=== PATIENT | male | born 1990 | race Caucasian/White ===

== ENCOUNTER 2017-12-30 16:40 | Emergency (ER) | payer MEDICAID ==
[2017-12-30] MEDS ORDERED: NS 1,000 ML IV ONE ×2 (17:05→17:06)
[2017-12-30] MEDS ORDERED: AMPICILLIN/SULBACTAM 3 GM in NS 100 ML IV ONE (17:05)
[2017-12-30] MEDS ORDERED: DEXAMETHASONE 10 MG/ML VIAL IVP ONE (17:05)
--- NOTE | 2017-12-30 17:08 | EDPHY ---
H & P Time Seen by Provider: 12/30/17 16:56 HPI/ROS: CHIEF COMPLAINT: Severe sore throat HISTORY OF PRESENT ILLNESS: 4 days of sore throat feels different than strep was seen at urgent care yesterday and has been on amoxicillin since yesterday. Today's worse and has pain and difficulty with swallowing food and pain with drinking water. He can swallow his antibiotics but with difficulty. Symptoms associated with bilateral ear fullness and a mild headache, no neck pain. No difficulty with speech and no dental symptoms. Not better worse with breathing but worse with swallowing. REVIEW OF SYSTEMS: Eye: no change in vision ENT: HPI Cardiac: no chest pain or syncope Pulmonary: no cough or SOB Abdomen: no vomiting, diarrhea, abdominal pain Musculoskeletal: no back pain Skin: no rash Neuro: no headache Constitutional: Subjective fever and chills : no urinary symptoms today, yesterday he had a little bit of discomfort but that has not happened since. A comprehensive 10 point review of systems is otherwise negative aside from elements mentioned in the history of present illness. PAST MEDICAL HISTORY: History of meningitis, no history of kidney disease. Social history: No drug use, nonsmoker General Appearance: Alert and conversant, cooperative. Eyes: No scleral icterus. ENT, Mouth: Normal tympanic membranes. No trismus. He has pharyngeal erythema with right tonsillar exudate and some lateral swelling but no fluctuance to palpation and uvula is midline. No stridor or drooling and voice is not hoarse. No external facial swelling. Respiratory: Normal respiratory effort, breath sounds equal, lungs are clear to auscultation. Cardiovascular: Regular rate and rhythm. Gastrointestinal: Abdomen is soft and non tender. Neurological: Alert, face symmetric, normal motor and sensory in extremities. Skin: Warm and dry, no rashes. Musculoskeletal: Normal range of the motion of the neck, supple. Psychiatric: Not agitated. Emergency Department course/MDM: Patient presents with severe right-sided tonsillitis and mild dehydration but does not clinically have evidence of retropharyngeal abscess, epiglottitis, deep space infection, Lemierre syndrome, or peritonsillar abscess. IV normal saline 2 L, dexamethasone 10 mg IV, Unasyn 3 g. Plan to treat symptomatically with ENT follow-up tomorrow morning. 1814: Hydrocodone 1 and Toradol 30 mg IV. 1905: Re-evaluated, comfortable, 2 L IV fluids. Urinated with no symptoms. Hydrocodone prepack and ENT follow-up in 12 hr. Swallows medication and fluids, no airway compromise, no abscess on exam at this visit. Smoking Status: Never smoked Constitutional: Initial Vital Signs Temperature (C) 37.1 C 12/30/17 16:46 Heart Rate 89 12/30/17 16:46 Respiratory Rate 18 12/30/17 16:46 Blood Pressure 126/82 H 12/30/17 16:46 O2 Sat (%) 95 12/30/17 16:46 O2 Delivery Mode Room Air Allergies/Adverse Reactions: No Known Allergies Allergy (Unverified 12/30/17 16:50) Home Medications: Medication Instructions Recorded Amoxicillin 12/30/17 Medical Decision Making - Data Points Medications Given: Discontinued Medications Hydrocodone Bitart/Acetaminophen ([place] 5/325) 1 tab PO EDNOW ONE Stop: 12/30/17 18:16 Last Admin: 12/30/17 18:32 Dose: 1 tab Hydrocodone Bitart/Acetaminophen ([place] 5/325mg Prepack#6) 1 btl TAKEHOME EDNOW ONE Stop: 12/30/17 19:07 Last Admin: 12/30/17 19:15 Dose: 1 btl Dexamethasone (Decadron Injection) 10 mg IVP EDNOW ONE Stop: 12/30/17 17:06 Last Admin: 12/30/17 17:14 Dose: 10 mg Sodium Chloride (Ns) 1,000 mls @ 0 mls/hr IV ONCE ONE; Wide Open PRN Reason: Protocol Stop: 12/30/17 17:06 Last Admin: 12/30/17 17:14 Dose: 1,000 mls Sodium Chloride (Ns) 1,000 mls @ 0 mls/hr IV EDNOW ONE; Wide Open PRN Reason: Protocol Stop: 12/30/17 17:07 Last Admin: 12/30/17 17:19 Dose: 1,000 mls Ampicillin Sodium/Sulbactam (Sodium 3 gm/ Sodium Chloride) 100 mls @ 200 mls/ hr IV EDNOW ONE PRN Reason: Protocol Stop: 12/30/17 17:34 Last Admin: 12/30/17 17:59 Dose: 100 mls Ibuprofen (Motrin) 600 mg PO EDNOW ONE Stop: 12/30/17 17:21 Last Admin: 12/30/17 17:43 Dose: 600 mg Ketorolac Tromethamine (Toradol) 30 mg IVP EDNOW ONE Stop: 12/30/17 18:16 Last Admin: 12/30/17 18:32 Dose: 30 mg Departure - Departure Disposition: Home, Routine, Self-Care Clinical Impression: Tonsillitis Condition: Good Instructions: Hydrocodone/Acetaminophen (By mouth), Tonsillitis (ED) Additional Instructions: See ENT tomorrow morning; call at 830 AM and tell them you are an ED referral. You received Unasyn 3g and Dexamethasone 10mg in the IV in the ED. Referrals: Nannette Berkowitz MD [Medical Doctor] - As per Instructions
[2017-12-30] MEDS ORDERED: IBUPROFEN 200 MG TAB PO ONE (17:20)
[2017-12-30] MEDS ORDERED: KETOROLAC 30 MG/1 ML SDV IVP ONE (18:15)
[2017-12-30] MEDS ORDERED: HYDROCODONE/APAP 5/325 TAB PO ONE (18:15)
[2017-12-30] MEDS ORDERED: HYDROCOD/APAP 5/325 PREPACK#6 BTL TAKEHOME ONE (19:06)
[2017-12-30 19:08] VITALS: BP 128/75
== END 2017-12-30 19:20 | disposition home or self-care (01) ==
DX: J03.90 Acute tonsillitis, unspecified (principal); E86.9 Volume depletion, unspecified
CPT/HCPCS: 96374; J0295; J1100; J1885

== ENCOUNTER 2018-01-01 14:31 | Emergency (ER) | payer MEDICAID ==
[2018-01-01] MEDS ORDERED: DEXAMETHASONE 10 MG/ML VIAL IVP ONE (15:14)
[2018-01-01] MEDS ORDERED: KETOROLAC 30 MG/1 ML SDV IVP ONE (15:14)
[2018-01-01] MEDS ORDERED: NS 1,000 ML IV ONE (15:14)
[2018-01-01] MEDS ORDERED: OXYCODONE/APAP 5/325 TAB PO ONE (15:15)
--- NOTE | 2018-01-01 15:37 | EDPHY ---
H & P Stated Complaint: DX TONSILLITIS RX ABX STILL HURTS Source: Patient, Old records Exam Limitations: No limitations - Personal History Current Tetanus Diphtheria and Acellular Pertussis (TDAP): Yes - Medical/Surgical History Hx Asthma: No Hx Chronic Respiratory Disease: No Hx Diabetes: No Hx Cardiac Disease: No Hx Renal Disease: No Hx Cirrhosis: No Hx Alcoholism: No Hx HIV/AIDS: No Hx Splenectomy or Spleen Trauma: No Other PMH: Meningitis - Social History Smoking Status: Never smoked Time Seen by Provider: 01/01/18 15:14 HPI/ROS: HPI: This is a 27-year-old male who presents with Chief Complaint: Sore throat Location: Throat Quality: Sore Duration: Since 12/29/2017 Signs and Symptoms: no fever, no nausea, no vomiting, no diarrhea, no urinary symptoms, no chest pain, no shortness of breath, no wheezing, no cough, no sore throat, no neck stiffness, no joint pain, +swollen glands, no ear pain, no rash Timing: Acute Severity: 11/19 Context: Patient presents with complaints of continued sore throat since 2017, with swollen glands worse on the right. Patient reports that he has not been able to eat or drink anything for 2 days. He is able to take his amoxicillin which is prescribed to him on 12/29/2017 by the urgent care. He was seen in this emergency room on 12/30/2017 with continued throat pain. He was given IV dexamethasone 10 mg and 3 g of IV Unasyn with ENT follow-up on . Patient did not follow up with ENT. He denies any fever, neck stiffness, nausea, vomiting. Modifying Factors: Amoxicillin Comment: ROS: A comprehensive 10 system review of systems is otherwise negative aside from elements mentioned in the history of present illness. MEDICAL/SURGICAL/SOCIAL HISTORY: Medical history: Meningitis. Does not take any regular medications. Surgical history: Denies Social history: Family history noncontributory. CONSTITUTIONAL: Well-developed, well-nourished adult white male, awake and alert, no obvious distress HEENT: Atraumatic and normocephalic, PERRL, EOMI. Nares patent; no rhinorrhea; no nasal mucosal edema. Tympanic membranes clear. Oropharynx clear, right tonsil 2+ with moderate erythema and no exudate, left tonsil 2+ with mild erythema and no exudate. Uvula midline. and moist pink mucosa. Airway patent. No lymphadenopathy. No meningismus. Cardiovascular: Normal S1/S2, regular rate, regular rhythm, without murmur rub or gallop. PULMONARY/CHEST: Symmetrical and nontender. Clear to auscultation bilaterally. Good air movement. No accessory muscle usage. ABDOMEN: Soft, nondistended, nontender, no rebound, no guarding, no peritoneal signs, no masses or organomegaly. No CVAT. EXTREMITIES: 2/2 pulses, strength 5/5, no deformities, no clubbing, no cyanosis or edema. NEUROLOGICAL: no focal neuro deficits. GCS 15. Able to talk and swallow without difficulty. SKIN: Warm and dry, no erythema. no rash. Good capillary refill. (Lilian Sewell) Constitutional: Initial Vital Signs Temperature (C) 36.7 C 01/01/18 14:51 Heart Rate 68 01/01/18 14:51 Respiratory Rate 16 01/01/18 14:51 Blood Pressure 113/76 01/01/18 14:51 O2 Sat (%) 98 01/01/18 14:51 O2 Delivery Mode Room Air Allergies/Adverse Reactions: No Known Allergies Allergy (Unverified 12/30/17 16:50) Home Medications: Medication Instructions Recorded Amoxicillin 12/30/17 Clindamycin HCl [Clindamycin] 300 mg PO TID #30 cap 01/01/18 [place] 5/325 (*) 01/01/18 methylPREDNISolone [Medrol Dose 1 each PO AD #0 ea 01/01/18 Yang] oxyCODONE/APAP 5/325 [Percocet 1 - 2 tab PO Q4H PRN #12 tab 01/01/18 5/325 (*)] Medical Decision Making ED Course/Re-evaluation: Vital signs reviewed and stable upon arrival. No systemic signs. No signs of postpharyngeal abscess/Grant's angina/airway compromise Given 1 L normal saline, IV Toradol 30 mg, IV Decadron 10 mg and p.o. Percocet x1 Negative strep CT soft tissue neck without contrast ordered to evaluate for abscess. CBC and BMP drawn. Called By Radiology who advised that Right peritonsillar abscess 1.6 cm x 1.9 cm versus phlegmon resulting in mild mass effect upon the hypopharynx. 1645: Labs reviewed. WBC 14 K, creatinine 0.7 1700: ED decision to consult ENT, Dr. Lake, who review CT neck scan. Advised that patient needs to stop amoxicillin, start taking clindamycin with 1st dose in the emergency room, Medrol Dosepak, pain medication and he will see him in the office on Wednesday or Wednesday. 1712: Reassessed patient. Patient able to take antibiotic pill and drink fluids without difficulty. He feels comfortable being discharged home with ENT follow- up. This patient was seen under the supervision of my secondary supervising physician. I evaluated care for this patient independently. Discussed this patient with Dr. Daniel. (Lilian Sewell) The patient was evaluated and managed by the physician delinquent tax collection assistant. I have reviewed this chart and I agree with the findings and plan of care as documented , as indicated by my signature. I am the secondary supervising physician. ( Makayla Daniel) Differential Diagnosis: Differential diagnosis includes but is not limited to infectious mononucleosis, strep pharyngitis, acute tonsillitis, Grant's angina. (Lilian Sewell) - Data Points Laboratory Results: Laboratory Results 01/01/18 15:25 01/01/18 15:20 01/01/18 Unknown Group A Strep DNA NEGATIVE (NEGATIVE) Medications Given: Discontinued Medications Clindamycin (Clindamycin) 300 mg PO EDNOW ONE PRN Reason: Protocol Stop: 01/01/18 17:14 Last Admin: 01/01/18 17:17 Dose: 300 mg Dexamethasone (Decadron Injection) 10 mg IVP EDNOW ONE Stop: 01/01/18 15:15 Last Admin: 01/01/18 15:24 Dose: 10 mg Sodium Chloride (Ns) 1,000 mls @ 0 mls/hr IV EDNOW ONE; Wide Open PRN Reason: Protocol Stop: 01/01/18 15:15 Last Admin: 01/01/18 15:24 Dose: 1,000 mls Ketorolac Tromethamine (Toradol) 30 mg IVP EDNOW ONE Stop: 01/01/18 15:15 Last Admin: 01/01/18 15:24 Dose: 30 mg Oxycodone/Acetaminophen (Percocet 5/325) 1 tab PO EDNOW ONE Stop: 01/01/18 15:16 Last Admin: 01/01/18 15:24 Dose: 1 tab Departure - Departure Disposition: Home, Routine, Self-Care Clinical Impression: Acute tonsillitis Condition: Good Instructions: Tonsillitis (ED) Additional Instructions: Consume a minimum of 8-10 glasses of water or electrolyte fluid replacement drinks that include Gatorade, Powerade, Pedialyte. Eat a soft/bland diet for the next 48 hours and then slowly advance as tolerated. Stop taking amoxicillin and start taking clindamycin. Take Medrol Dosepak as directed. Take Percocet 1-2 tabs every 4-6 hours as needed for severe/breakthrough pain. Call the ENT office on Wednesday for a follow-up appointment either Wednesday or Wednesday. Follow-Up: Please follow-up as noted above. Follow-up sooner if your condition worsens or if you develop any new problems. Call as soon as possible for an appointment. Be clear when you call for an appointment that this is an Emergency Department follow-up. Contact the Emergency Department if you have trouble arranging follow-up care. Our referrals are not based on your insurance network. When time allows, contact your insurance carrier to verify the referral physician is in your plan. If not, get a referral for an in-network programmer. Referrals: Neymar Lake MD [Medical Doctor] - 1-2 days without fail Prescriptions: Clindamycin HCl [Clindamycin] 300 mg PO TID #30 cap methylPREDNISolone [Medrol Dose Yang] 1 each PO AD #0 ea oxyCODONE/APAP 5/325 [Percocet 5/325 (*)] 1 - 2 tab PO Q4H PRN #12 tab PRN Reason: Pain, Severe
[2018-01-01 16:06] LABS: PLATELET COUNT 334 10^3/uL (150-400)
[2018-01-01] MEDS ORDERED: IOPAMIDOL (ISOVUE-300) 100 ML BTL ONE (16:13)
[2018-01-01] MEDS ORDERED: CLINDAMYCIN 150 MG CAP PO ONE (17:13)
[2018-01-01 17:34] VITALS: BP 120/72
== END 2018-01-01 17:35 | disposition home or self-care (01) ==
DX: J03.90 Acute tonsillitis, unspecified (principal); E86.9 Volume depletion, unspecified
CPT/HCPCS: 96374; J1100; J1885; Q9967